=== PATIENT | male | born 1970 | race Caucasian/White ===

== ENCOUNTER 2016-04-10 09:02 | Day surgery (SDC) | payer BC ==
[2016-04-05 09:18] VITALS: BMI 37.7
[~2016-04-10 09:02] MED LIST: LACTATED RINGERS 1,000 ML IV SCH
[2016-04-10 09:54] VITALS: RESP 16; TEMP 97.2
[2016-04-10] MEDS ORDERED: PROPOFOL 10 MG/ML 20 ML VIAL IV ONE (10:00)
--- NOTE | 2016-04-10 10:15 | P.PCN ---
Date of Procedure: 04/10/16 Procedure(s) Performed: BRIEF HISTORY: Patient is a 46-year-old, pleasant, white male, scheduled for an upper endoscopy as a part of evaluation of intermittent dysphagia to solids for the last 1 year duration. He often has the symptoms once or twice a week usually while eating sandwiches. He had one choking episode in the past. He also completed of heartburn has been on omeprazole 20 mg daily for the last 2 years duration. His and scheduled for an upper endoscopy with possible dilation today.. PROCEDURE PERFORMED: Esophagogastroduodenoscopy with biopsy and dilation. PREOPERATIVE DIAGNOSIS: Intermittent dysphagia to solids. IV sedation per anesthesia. PROCEDURE: After informed consent was obtained, the patient was brought into the endoscopy unit. IV conscious sedation was administered by Anesthesia under continuous monitoring. Initially the Olympus GIF-140 video endoscope was inserted into the mouth. Esophagus intubated without any difficulty. It was gradually advanced into the stomach and duodenum and carefully examined. The bulb and the second part of the duodenum appeared normal. The scope at this time was withdrawn to the stomach, adequately insufflated with air, and upon careful examination, mucosa of the antrum, had mild gastritis and biopsies were done from this area. The body, cardia and the fundus appeared normal. The scope was then withdrawn into the esophagus. Small sliding hiatal hernia noted. The GE junction was located at 41 cm from the incisors. There was distal esophageal mucosal ring identified and this was dilated using 18-20 mm TTS balloon for total of 1 minute in a sequential fashion. The mucosa in the mid and distal esophagus appeared slightly thickened with some longitudinal ridges and 4 was suspicious for years of age esophagitis and multiple biopsies were done from this area. The rest of the esophagus appeared normal. There were no erosions or ulcerations seen and the patient tolerated the procedure well. IMPRESSION: 1. Distal esophageal mucosal ring status post balloon dilation using 18-20 mm TTS balloon as described above. 2. Mid and distal esophageal mucosal fold thickening with longitudinal ridges and 4 was suspicious for eosinophilic esophagitis status post multiple biopsies. 3. Mild antral gastritis RECOMMENDATIONS: The findings of this examination were discussed with the patient as well as his family. He was advised to be on a clear liquid diet for lunch today and soft diet for dinner. He was also advised to increase omeprazole to 20 mg twice daily and follow with the biopsy results. If he still has persistent symptoms he will follow up in office in 3-4 weeks.
[2016-04-10 10:49] VITALS: BP 112/78; PULSE 73
== END 2016-04-10 11:01 | disposition home or self-care (01) ==
LOC: ORWHC2ENDO 09:02
PROVIDERS: ATTEND Internal Medicine Gastroenterology
DX: K22.2 Esophageal obstruction (principal); K20.0 Eosinophilic esophagitis; K21.0 Gastro-esophageal reflux disease with esophagitis; K44.9 Diaphragmatic hernia without obstruction or gangrene; K29.50 Unspecified chronic gastritis without bleeding; Z79.899 Other long term (current) drug therapy
CPT/HCPCS: 88305; 88342; 43239; 43249; J2704; 99153

== ENCOUNTER 2021-02-20 09:04 | Day surgery (SDC) | payer BC, OTHER ==
[2021-02-15 15:44] VITALS: BMI 36.3
[2021-02-20 09:43] VITALS: RESP 16; TEMP 98.2
[2021-02-20] MEDS ORDERED: LIDOCAINE 1% (10MG/ML) FOR IV START INTRADERMA ONE (09:50)
[2021-02-20] MEDS ORDERED: PROPOFOL 10 MG/ML 20 ML VIAL IV ONE (10:15)
--- NOTE | 2021-02-20 10:21 | P.GSHP ---
History of Present Illness H&P Date: 02/20/21 Chief Complaint: Abnormal stool study Patient here today for colonoscopy. Had a recent cologuard test that was abnormal. He does not see any rectal bleeding. No family history of colon cancer or polyps. No bowel complaints. Past Medical History Past Medical History: Hyperlipidemia, Hypertension, Osteoarthritis (OA), Sleep Apnea/CPAP/BIPAP Additional Past Medical History / Comment(s): positive cologuard History of Any Multi-Drug Resistant Organisms: None Reported Past Surgical History: No Surgical Hx Reported Additional Past Surgical History / Comment(s): EGD Additional Past Anesthesia/Blood Transfusion Reaction / Comment(s): . Smoking Status: Never smoker - Past Family History Mother Family Medical History: Cancer Additional Family Medical History / Comment(s): breast Medications and Allergies Home Medications Medication Instructions Recorded Confirmed Type Losartan Potassium [Cozaar] 100 mg PO DAILY 02/15/21 02/20/21 History Allergies Allergy/AdvReac Type Severity Reaction Status Date / Time No Known Allergies Allergy Verified 02/20/21 09:35 Surgical - Exam Vital Signs Temp Pulse Resp BP Pulse Ox 98.2 F 87 16 136/84 97 02/20/21 09:41 02/20/21 09:41 02/20/21 09:41 02/20/21 09:41 02/20/21 09:41 Physical exam: General: Well-developed, well-nourished HEENT: Normocephalic, sclerae nonicteric Abdomen: Nontender, nondistended Extremities: No edema Neuro: Alert and oriented Assessment and Plan (1) Abnormal stool test Narrative/Plan: Will proceed with colonoscopy at this time Current Visit: Yes Status: Acute Code(s): R19.5 - OTHER FECAL ABNORMALITIES SNOMED Code(s): 023181878
--- NOTE | 2021-02-20 10:41 | P.PCN ---
Date of Procedure: 02/20/21 Procedure(s) Performed: PREOPERATIVE DIAGNOSIS: Abnormal stool study POSTOPERATIVE DIAGNOSIS: Cecal polyp, descending colon polyp PROCEDURE: Colonoscopy with snare polypectomy, biopsy, and clip placement ANESTHESIA: MAC SURGEON: Alex Cunningham M.D. SPECIMENS: Polyps ENDOSCOPIC PROCEDURE: The patient was placed on the endoscopy table in the left decubitus position. The Olympus colonoscope was inserted into the anus and passed under direct visualization to the base of the cecum. The appendiceal orifice was visualized. The patient was noted to have a small polyp at the base of the cecum. This was removed using the cold biopsy forceps. This measured only about 3-4 mm in size. Unfortunately small amount of oozing was seen that did not stop after watching it for a while. A single clip was used to control bleeding at that site. No further bleeding seen. The remainder of the cecum and ascending and transverse colon appeared normal. In the descending colon a small polyp was seen and removed using the snare with cautery technique. The remainder of the descending sigmoid and rectum appeared normal. There was no visible diverticulosis. Digital rectal examination was normal. The patient was taken to the recovery room in stable condition per anesthesia guidelines. RECOMMENDATIONS: Resume diet. Await biopsy results.
[2021-02-20 10:51] VITALS: BP 145/89; PULSE 84
== END 2021-02-20 11:29 | disposition home or self-care (01) ==
LOC: ORWHC2ENDO 09:04
PROVIDERS: ATTEND Surgery
DX: K63.5 Polyp of colon (principal); E78.5 Hyperlipidemia, unspecified; I10 Essential (primary) hypertension; M19.90 Unspecified osteoarthritis, unspecified site; G47.30 Sleep apnea, unspecified; Z80.3 Family history of malignant neoplasm of breast; Z79.899 Other long term (current) drug therapy
CPT/HCPCS: 88305; 45380; 45385; J2704; 45382

== ENCOUNTER 2022-03-10 08:43 | Emergency (ER) | payer OTHER ==
[2022-03-10] MEDS ORDERED: MORPHINE SULFATE 4 MG/ML SYRINGE IM STA (09:07)
--- NOTE | 2022-03-10 09:08 | ED ---
Neck Injury/Pain HPI - General Chief Complaint: Neck Pain/Injury Stated Complaint: Neck & Arm Pain Time Seen by Provider: 03/10/22 09:01 Source: patient, RN notes reviewed Mode of arrival: ambulatory Limitations: no limitations - History of Present Illness Initial Comments: Patient is a 52-year-old male presenting to the emergency room with complaints of left-sided neck pain that is radiating down into his left arm which he woke up with 4 days ago. He was seen by urgent care and was given a muscle relaxer and steroid dose pack along with a steroid injection. He states the medication help breifly but that medication is not working. He denies any trauma. He denies any weakness but due to pain his active range of motion is limited to his left arm and to the left side of his neck. Despite pain radiation he denies any numbness or tingling in the left arm. He reports that the pain seems to be intensifying despite treatment from urgent care. He has a past medical history significant for hypertension, hyperlipidemia, osteoarthritis, and sleep apnea. MD Complaint: neck pain - Related Data Home Medications Medication Instructions Recorded Confirmed Losartan Potassium [Cozaar] 100 mg PO DAILY 02/15/21 02/20/21 Allergies Allergy/AdvReac Type Severity Reaction Status Date / Time No Known Allergies Allergy Verified 02/20/21 09:35 Review of Systems ROS Statement: Those systems with pertinent positive or pertinent negative responses have been documented in the HPI. ROS Other: All systems not noted in ROS Statement are negative. Past Medical History Past Medical History: Hyperlipidemia, Hypertension, Osteoarthritis (OA), Sleep Apnea/CPAP/BIPAP Additional Past Medical History / Comment(s): positive cologuard History of Any Multi-Drug Resistant Organisms: None Reported Past Surgical History: No Surgical Hx Reported Additional Past Surgical History / Comment(s): EGD Additional Past Anesthesia/Blood Transfusion Reaction / Comment(s): . Past Psychological History: No Psychological Hx Reported Smoking Status: Never smoker Past Alcohol Use History: None Reported Past Drug Use History: None Reported - Past Family History Mother Family Medical History: Cancer Additional Family Medical History / Comment(s): breast General Exam - General Exam Comments Initial Comments: GENERAL: No acute distress, well developed, well nourished. HEENT: Normocephalic, atraumatic. Pupils equal, round, reactive to light. Moist mucous membranes. cervical paraspinal spasms and limited. Active range of motion due to pain. Passive range of motion. LUNGS: No respiratory distress or use of accessory muscles. HEART: Regular rate. ABDOMEN: Non-distended. BACK: Normal inspection. EXTREMITIES: No edema. normal capillary refill. Left shoulder range of motion ac tively limited due to pain. Full passive range of motion. No crepitus or dislocation of left shoulder. NEUROLOGIC: Alert & oriented x 3. CN II-XII grossly intact. PSYCHIATRIC: Normal affect and behavior. DERMATOLOGIC: Skin intact, without rashes or lesions noted. Limitations: no limitations Course Vital Signs 03/10/22 03/10/22 08:45 10:30 Temperature 98.2 F 98.3 F Pulse Rate 86 78 Respiratory 20 18 Rate Blood Pressure 146/85 131/78 O2 Sat by Pulse 99 98 Oximetry Medical Decision Making - Medical Decision Making Was pt. sent in by a medical professional or institution? @ -No Did you speak to anyone other than the patient for history? @ -Spouse Did you review nursing and triage notes? @ -Yes and agree Were old charts reviewed? @ -No Differential Diagnosis? @ -Differential Neck Pain: Strain, epidural abscess, vertebral osteomyelitis, discitis, fracture, subluxat ion, disc herniation, DJD, spinal stenosis, this is not meant to be an all- inclusive list. EKG interpreted by me (3pts min.)? @ -None X-rays interpreted by me (1pt min.)? @ -Cervical spine and left shoulder x-ray image interpreted by me demonstrates lordosis without vertebral fracture or dislocation. Left shoulder joint p reserved with out any fracture or dislocation. CT interpreted by me (1pt min.)? @ -None U/S interpreted by me (1pt. min.)? @ -None What testing was considered but not performed? (CT, X-rays, U/S, labs)? Why? @-None What meds were considered but not given? Why? @ -Steroids considered but not given due to currently on oral steroids from urgent care Did you discuss the management of the patient with other professionals? @ -None Did you reconcile home meds? @ -Reviewed not reconciled Was smoking cessation discussed for >3mins.? @ -None Was critical care preformed (if so, how long)? @ -No Were there social determinants of health that impacted care today? How? (Homelessness, low income, unemployed, alcoholism, drug addiction, transportation, low edu. Level, literacy, decrease access to med. care, alf, rehab)? @ -No Was there de-escalation of care discussed even if they declined? (Discuss DNR or withdrawal of care, Hospice)? @ -No What co-morbidities impacted this encounter? (DM, HTN, Smoking, COPD, CAD, Cancer, CVA, Hep., AIDS, mental health diagnosis, sleep apnea, morbid obesity)? @ -None Was patient admitted / discharged? @ -52-year-old male with neck and shoulder pain ongoing for 4 days seen and evaluated by urgent care given steroids after Depo-Medrol injection along with muscle relaxants. No significant improvement on oral steroids with inability to sleep. Acute abnormalities on likely due to lack of trauma however due to worsening of symptoms on treatment will obtain x-ray of cervical spine and left shoulder. Will give morphine for pain and monitor response. X-ray negative for acute findings. Pain improved with morphine. No indication for further diagnostic imaging or laboratory studies. Will discharge home in stable condition with Tylenol 3 starter pack to utilize for pain in combination with current steroid regimen. Range of motion as tolerated and follow-up with his primary care provider encouraged. Undiagnosed new problem with uncertain prognosis? @ -None Drug Therapy requiring intensive monitoring for toxicity (Heparin, Nitro, Insulin, Cardizem)? @ -None Were any procedures done? @ -None Diagnosis/symptom? @ -Cervicalgia with radiculopathy Acute, or Chronic, or Acute on Chronic? @ -Acute Uncomplicated (without systemic symptoms) or Complicated (systemic symptoms)? @ -Uncomplicated Side effects of treatment? @ -None Exacerbation, Progression, or Severe Exacerbation] @ -No Poses a threat to life or bodily function? @ -No Case discussed with Dr. Do - Radiology Data Radiology results: report reviewed, image reviewed Disposition Clinical Impression: Cervical radiculopathy, Acute torticollis Disposition: HOME SELF-CARE Condition: Stable Instructions (If sedation given, give patient instructions): Cervical Radiculopathy (ED) Additional Instructions: Please complete steroid pack as prescribed by urgent care and continue to utilize muscle relaxer as prescribed by urgent care. Utilize Tylenol 3 starter pack as provided for breakthrough pain. Range of motion as tolerated of neck and left shoulder encouraged. Avoid bedrest and heavy lifting. Please follow-up with your primary care provider. Please return to the Emergency Department if symptoms worsen or any other concerns. Is patient prescribed a controlled substance at d/c from ED?: No Referrals: Faheem Collins III, MD [Primary Care Provider] - 1-2 days Time of Disposition: 10:27
--- NOTE | 2022-03-10 09:46 | XR ---
EXAMINATION TYPE: XR cervical spine 5 views comp, XR shoulder complete 3 views LT DATE OF EXAM: 03/10/2022 COMPARISON: None HISTORY: 52-year-old male with neck and shoulder pain FINDINGS: Cervical spine: No predental space widening or prevertebral soft tissue swelling. While degenerative disc disease C5- C6. Preserved alignment of the cervical spine show straightening of the normal cervical lordosis. Mil d uncovertebral joint degenerative change mid and lower cervical spine. On the oblique views, there m ay be minimal bony neural foraminal narrowing on the left at C5-C6. No other significant bony neurofo raminal narrowing seen on either side. Normal odontoid view. Left shoulder: AC joint appears congruent. Subacromial space is preserved. No acute fracture, subluxation, dislocati on. IMPRESSION: 1. Cervical spine: Mild spondylotic change particularly at C5-C6. This may contribute to minimal bony neural foraminal narrowing on the left at this level. Straightening of the normal cervical lordosis could be positional or due to muscle spasm. No malalignment. 2. Left shoulder: No acute osseous abnormality seen.
[2022-03-10] MEDS ORDERED: ACET/COD 300 MG/30 MG STARTER PACK 6 TAB BTL PO STA (10:24)
[2022-03-10 11:43] VITALS: BP 131/78; PULSE 78; RESP 18; TEMP 98.3
== END 2022-03-10 10:30 | disposition home or self-care (01) ==
LOC: EC 08:43
DX: M54.12 Radiculopathy, cervical region (principal); M43.6 Torticollis; I10 Essential (primary) hypertension
CPT/HCPCS: 72050; 73030; J2270; 99283

== ENCOUNTER → 2022-03-15 | Outpatient (CLI) | payer OTHER ==
--- NOTE | 2022-03-15 21:43 | MR ---
EXAMINATION TYPE: MR cervical spine wo con DATE OF EXAM: 03/15/2022 INDICATION: Patient age:Male; 52 years old; Reason for study: M54.12; [facility]. Neck and Arm Pain since Feb 2022 COMPARISON: Cervical spine radiographs 03/10/2022 TECHNIQUE: Multi planar, multi sequence imaging was performed utilizing: T1-weighted, T2-weighted, an d turbo inversion recovery imaging of the cervical spine. IV Contrast: None FINDINGS: Alignment: The cervical vertebral bodies have preserved heights. Alignment is within normal limits gi marilu patient positioning. Bones: Minimal disc space narrowing at C5-C6. No evidence for bony edema on inversion recovery sequen vicki. Cord: The spinal cord is unremarkable with regards to their signal intensity and morphology. Discs: Intervertebral disc signal is maintained. C2-C3: No significant disc pathology. The spinal canal is patent. No neural foraminal stenosis. C3-C4: A disc osteophyte complex is present which minimally narrows the ventral subarachnoid space. No neural foraminal stenosis. C4-C5: No significant disc pathology. The spinal canal is patent. No neural foraminal stenosis. C5-C6: A disc osteophyte complex is present with mild spinal canal stenosis. Bilateral facet and unc overtebral joint arthropathy are present with moderate left and mild right neural foraminal stenosis. C6-C7: No significant disc pathology. The spinal canal is patent. No neural foraminal stenosis. C7-T1: No significant disc pathology. The spinal canal is patent. No neural foraminal stenosis. Other: None. IMPRESSION: 1. No evidence for disc herniation or significant spinal canal stenosis. 2. Mild disc degeneration with associated osteoarthritic changes. Findings worse at C5-C6 with modera te left neural foraminal stenosis.
== END | disposition home or self-care (01) ==
LOC: RADMRIMAIN 20:50
PROVIDERS: ATTEND Family Medicine
DX: M50.122 Cervical disc disorder at C5-C6 level with radiculopathy (principal); M47.22 Other spondylosis with radiculopathy, cervical region; M99.71 Connective tissue and disc stenosis of intervertebral foramina of cervical region
CPT/HCPCS: 72141